=== PATIENT | female | born 1995 | race American Indian/Alaskan Native ===

== ENCOUNTER 2020-10-07 12:27 | Emergency (ER) | payer OTHER ==
[2020-10-07 12:41] VITALS: BP 177/88
[2020-10-07] MEDS ORDERED: ALBUTEROL 2.5 MG/3 ML NEBU IH ONE (13:24)
[2020-10-07] MEDS ORDERED: IPRATROPIUM 0.02% NEBU 2.5 ML IH ONE (13:25)
[2020-10-07 13:42] LABS: Basophils # (Auto) 0.1 K/mm3 (0.0-0.1); Basophils % (Auto) 0.5 % (0.0-1.8); Eosinophils # (Auto) 0.2 K/mm3 (0.0-0.4); Eosinophils % (Auto) 2.1 % (0.0-4.3); Hemoglobin 13.4 gm/dl (10.1-14.3); Lymphocytes # (Auto) 2.6 K/mm3 (1.2-5.4); Lymphocytes % (Auto) 24.2 % (13.4-35.0); Mean Corpuscular HGB Conc 33 % (30-34); Mean Corpuscular Volume 83 fl (79-97); Monocytes # (Auto) 0.7 K/mm3 (0.0-0.8); Monocytes % (Auto) 6.5 % (0.0-7.3); Platelet Count 239 K/mm3 (140-440); Red Blood Count 4.81 M/mm3 (3.65-5.03); Red Cell Distribution Width 14.2 % (13.2-15.2)
[2020-10-07 14:05] LABS: Alanine Aminotransferase 26 units/L (7-56); Albumin 3.8 g/dL (3.9-5); Blood Urea Nitrogen 9 mg/dL (7-17); Calcium 9.1 mg/dL (8.4-10.2); Hemolysis Index 0
[2020-10-07 14:07] LABS: BUN/Creatinine Ratio 13
[2020-10-07] MEDS ORDERED: methylPREDNISolone Sod Succinate 125 MG/2 ML INJ IV ONE (14:10)
--- NOTE | 2020-10-07 14:11 | Emergency Department Report ---
ED General Adult HPI - General Chief complaint: Chest Pain Stated complaint: CHEST PAIN/SOB Time Seen by Provider: 10/07/20 13:16 Source: patient Mode of arrival: Ambulatory Limitations: No Limitations - Related Data Allergies Allergy/AdvReac Type Severity Reaction Status Date / Time No Known Allergies Allergy Unverified 10/07/20 12:39 ED Review of Systems ROS: Stated complaint: CHEST PAIN/SOB Other details as noted in HPI ED Past Medical Hx - Past Medical History Previous Medical History?: Yes Hx Diabetes: Yes ED Physical Exam - General Limitations: No Limitations ED Course Vital Signs 10/07/20 12:41 Temperature 98.9 F Pulse Rate 113 H Respiratory 18 Rate Blood Pressure 177/88 [Right] O2 Sat by Pulse 95 Oximetry ED Medical Decision Making - Lab Data Result diagrams: 10/07/20 13:31 10/07/20 13:31 Critical care attestation.: If time is entered above; I have spent that time in minutes in the direct care of this critically ill patient, excluding procedure time. ED Disposition Condition: Stable
--- NOTE | 2020-10-07 14:30 | Emergency Department Report ---
<SHAWN SANZ - Last Filed: 10/07/20 17:27> ED General Adult HPI - General Chief complaint: Chest Pain Stated complaint: CHEST PAIN/SOB Time Seen by Provider: 10/07/20 13:16 Source: patient Mode of arrival: Ambulatory Limitations: No Limitations - History of Present Illness Initial comments: 25-year-old -[place] female patient presents with complaints of sudden onset of chest pain and shortness of breath this morning. She states this episode feels similar to an episode she had 2 years ago when she had to receive a breathing treatment after having a reaction to pollen. She denies any throat pain/dysphagia, cough/hemoptysis, fever/chills/sweats, recent known sick contacts, loss of taste or smell, abdominal pain, nausea/vomiting/diarrhea, or history of smoking. No history of DVT/PE, leg pain/swelling, recent long travel/surgeries, or history of cancer. She states she is currently on control. History of hypertension and diabetes per patient - Related Data Previous Rx's Medication Instructions Recorded Last Taken Type Albuterol Mdi (or & Nicu Only) 2 puff IH Q4H PRN #8.5 gram 10/07/20 Unknown Rx [ProAir HFA Inhaler] Doxycycline Hyclate 100 mg PO BID 10 Days #20 tablet. 10/07/20 Unknown Rx Loratadine [Claritin] 10 mg PO QDAY #10 tablet 10/07/20 Unknown Rx Prednisone [predniSONE 10 mg 10 mg PO .TAPER #1 tab.ds.pk 10/07/20 Unknown Rx (6-Day Pack, 21 Tabs)] Allergies Allergy/AdvReac Type Severity Reaction Status Date / Time No Known Allergies Allergy Unverified 10/07/20 12:39 ED Review of Systems Constitutional: denies: chills, diaphoresis, fever Respiratory: shortness of breath. denies: cough Cardiovascular: chest pain Gastrointestinal: denies: abdominal pain, nausea, vomiting Musculoskeletal: denies: back pain Skin: denies: lesions, change in color Neurological: denies: headache Hematological/Lymphatic: denies: swollen glands ED Past Medical Hx - Past Medical History Previous Medical History?: Yes Hx Diabetes: Yes - Medications Home Medications: Home Medications Medication Instructions Recorded Confirmed Last Taken Type Albuterol Mdi (or & Nicu Only) 2 puff IH Q4H PRN #8.5 gram 10/07/20 Unknown Rx [ProAir HFA Inhaler] Doxycycline Hyclate 100 mg PO BID 10 Days #20 tablet. 10/07/20 Unknown Rx Loratadine [Claritin] 10 mg PO QDAY #10 tablet 10/07/20 Unknown Rx Prednisone [predniSONE 10 mg 10 mg PO .TAPER #1 tab.ds.pk 10/07/20 Unknown Rx (6-Day Pack, 21 Tabs)] ED Physical Exam - General Limitations: No Limitations General appearance: alert, in no apparent distress, obese - Head Head exam: Present: atraumatic, normocephalic - Eye Eye exam: Present: normal appearance. Absent: scleral icterus - ENT ENT exam: Present: normal exam - Neck Neck exam: Present: normal inspection, full ROM. Absent: tenderness - Respiratory Respiratory exam: Present: decreased breath sounds (Diffuse). Absent: respir atory distress, rales, rhonchi, stridor - Cardiovascular Cardiovascular Exam: Present: normal rhythm, tachycardia - GI/Abdominal GI/Abdominal exam: Present: soft. Absent: distended, tenderness - Extremities Exam Extremities exam: Absent: calf tenderness (No swelling or tenderness noted to legs bilaterally) - Back Exam Back exam: Present: full ROM - Neurological Exam Neurological exam: Present: alert, oriented X3, normal gait - Psychiatric Psychiatric exam: Present: normal affect, normal mood - Skin Skin exam: Present: warm, dry, intact, normal color. Absent: rash, diaphoretic, ecchymosis ED Medical Decision Making - Lab Data Result diagrams: 10/07/20 13:31 10/07/20 13:31 - Radiology Data Radiology results: report reviewed CTA CHEST WITH CONTRAST INDICATION / CLINICAL INFORMATION: chest pain, shortness of breath. TECHNIQUE: Axial CT images were obtained through the chest after injection of IV contrast. 3 plane MIP and/or 3D reconstructions were produced. All CT scans at this location are performed using CT dose reduction for ALARA by means of automated exposure control. COMPARISON: None available. FINDINGS: PULMONARY ARTERIES: No large central pulmonary embolus. Distal pulmonary arterial branches are poorly evaluated secondary to timing of contrast bolus with mild turbulent filling artifact. THORACIC AORTA: No significant abnormality. HEART: No significant abnormality. CORONARY ARTERIES: No significant calcification. MEDIASTINUM / DENISE: No significant abnormality. PLEURA: No pleural effusion. No pneumothorax. LUNGS: Patchy groundglass opacities are noted in a Central peribronchial vascular distribution bilaterally. Small right-sided semisolid perifissural nodule measures 8 mm (series 2 image 44). ADDITIONAL FINDINGS: None. UPPER ABDOMEN: No acute findings. SKELETAL STRUCTURES: No significant osseous abnormality. No aggressive osseous lesion. IMPRESSION: 1. No large central pulmonary embolus on this limited study. Distal pulmonary arterial branches are poorly evaluated secondary to timing of contrast bolus and turbulent filling artifact. 2. Groundglass opacities bilaterally with central peribronchial vascular distribution may represent interstitial edema versus developing infectious process. Clinical correlation is needed. 3. Incidental right perifissural pulmonary nodule measures 8 mm. Follow-up recommendations as below. - Medical Decision Making 25-year-old -[place] female patient presents with complaints of sudden onset of chest pain and shortness of breath this morning. She states this episode feels similar to an episode she had 2 years ago when she had to receive a breathing treatment after having a reaction to pollen. She denies any throat pain/dysphagia, cough/hemoptysis, fever/chills/sweats, recent known sick contacts, loss of taste or smell, abdominal pain, nausea/vomiting/diarrhea, or history of smoking. No history of DVT/PE, leg pain/swelling, recent long travel/surgeries, or history of cancer. She states she is currently on control. History of hypertension and diabetes per patient PERC score = 2 given heart rate of 113 and use of control. Dimer elevated in the 500s. CBC and CMP are without acute abnormalities. CTA of chest is negative for any PE, however shows possible developing infectious process vs interstitial edema. Patient given continuous neb and [id number] states her shortness of breath has resolved. Improved aeration noted on reexamination of lungs. Will treat for bronchospasm and pneumonia with albuterol and prednisone. Discussed importance of monitoring glucose levels closely given history of diabetes and importance of low carb/sugar diet. Blood pressure rechecked at 115/69 she is well-appearing, her vitals are stable, she is stable for discharge home. Strict return precautions discussed in detail with patient who verbalized understanding. Patient to follow-up with primary care for recheck within first thing Saturday morning ED Disposition Clinical Impression: Bronchospasm, acute, Pulmonary nodule Disposition: TO HOME OR SELFCARE Is pt being admited?: No Condition: Stable Instructions: Asthma, Adult, Bronchospasm, Adult, Community-Acquired Pneumonia, Adult Prescriptions: Loratadine [Claritin] 10 mg PO QDAY #10 tablet Doxycycline Hyclate 100 mg PO BID 10 Days #20 tablet. Prednisone [predniSONE 10 mg (6-Day Pack, 21 Tabs)] 10 mg PO .TAPER #1 tab.ds.pk Albuterol Mdi (or & Nicu Only) [ProAir HFA Inhaler] 2 puff IH Q4H PRN #8.5 gram PRN Reason: Shortness Of Breath Referrals: PRIMARY CARE, [Primary Care Provider] - 3-[address] [facility] [Provider Group] - 3-5 Days Forms: Work/School Release Form(ED) <ANGELLA GAMBOA - Last Filed: 10/09/20 10:50> ED Review of Systems ROS: Stated complaint: CHEST PAIN/SOB Other details as noted in HPI ED Course Vital Signs 10/07/20 10/07/20 10/07/20 12:41 13:22 16:59 Temperature 98.9 F Pulse Rate 113 H 106 H 101 H Respiratory 18 Rate Blood Pressure 177/88 [Right] O2 Sat by Pulse 95 98 98 Oximetry 10/07/20 17:00 Temperature Pulse Rate 101 H Respiratory Rate Blood Pressure [Right] O2 Sat by Pulse 98 Oximetry ED Medical Decision Making - Lab Data Result diagrams: 10/07/20 13:31 10/07/20 13:31 Vital Signs 10/07/20 10/07/20 10/07/20 12:41 13:22 16:59 Temperature 98.9 F Pulse Rate 113 H 106 H 101 H Respiratory 18 Rate Blood Pressure 177/88 [Right] O2 Sat by Pulse 95 98 98 Oximetry 10/07/20 17:00 Temperature Pulse Rate 101 H Respiratory Rate Blood Pressure [Right] O2 Sat by Pulse 98 Oximetry Lab Results 10/07/20 10/07/20 10/07/20 Range/Units 13:31 13:31 13:31 WBC 10.9 (4.5-11.0) K/mm3 RBC 4.81 (3.65-5.03) M/mm3 Hgb 13.4 (10.1-14.3) gm/dl Hct 40.0 (30.3-42.9) % MCV 83 (79-97) fl MCH 28 (28-32) pg MCHC 33 (30-34) % RDW 14.2 (13.2-15.2) % Plt Count 239 (140-440) K/mm3 Lymph % (Auto) 24.2 (13.4-35.0) % [place] % (Auto) 6.5 (0.0-7.3) % Eos % (Auto) 2.1 (0.0-4.3) % Baso % (Auto) 0.5 (0.0-1.8) % Lymph # (Auto) 2.6 (1.2-5.4) K/mm3 [place] # (Auto) 0.7 (0.0-0.8) K/mm3 Eos # (Auto) 0.2 (0.0-0.4) K/mm3 Baso # (Auto) 0.1 (0.0-0.1) K/mm3 Seg Neutrophils % 66.7 (40.0-70.0) % Seg Neutrophils # 7.3 (1.8-7.7) K/mm3 D-Dimer (0-234) ng/mlDDU Sodium 139 (137-145) mmol/L Potassium 4.0 (3.6-5.0) mmol/L Chloride 105.1 (98-107) mmol/L Carbon Dioxide 24 (22-30) mmol/L Anion Gap 14 mmol/L BUN 9 (7-17) mg/dL Creatinine 0.7 (0.6-1.2) mg/dL Estimated GFR > 60 ml/min BUN/Creatinine Ratio 13 % Glucose 107 H (65-100) mg/dL Calcium 9.1 (8.4-10.2) mg/dL Total Bilirubin 0.20 (0.1-1.2) mg/dL AST 17 (5-40) units/L ALT 26 (7-56) units/L Alkaline Phosphatase 85 (35-129) units/L Troponin T < 0.010 (0.00-0.029) ng/mL Total Protein 7.4 (6.3-8.2) g/dL Albumin 3.8 L (3.9-5) g/dL Albumin/Globulin Ratio 1.1 % HCG, Qual Negative (Negative) 10/07/20 Range/Units 13:31 WBC (4.5-11.0) K/mm3 RBC (3.65-5.03) M/mm3 Hgb (10.1-14.3) gm/dl Hct (30.3-42.9) % MCV (79-97) fl MCH (28-32) pg MCHC (30-34) % RDW (13.2-15.2) % Plt Count (140-440) K/mm3 Lymph % (Auto) (13.4-35.0) % [place] % (Auto) (0.0-7.3) % Eos % (Auto) (0.0-4.3) % Baso % (Auto) (0.0-1.8) % Lymph # (Auto) (1.2-5.4) K/mm3 [place] # (Auto) (0.0-0.8) K/mm3 Eos # (Auto) (0.0-0.4) K/mm3 Baso # (Auto) (0.0-0.1) K/mm3 Seg Neutrophils % (40.0-70.0) % Seg Neutrophils # (1.8-7.7) K/mm3 D-Dimer 597.68 H (0-234) ng/mlDDU Sodium (137-145) mmol/L Potassium (3.6-5.0) mmol/L Chloride (98-107) mmol/L Carbon Dioxide (22-30) mmol/L Anion Gap mmol/L BUN (7-17) mg/dL Creatinine (0.6-1.2) mg/dL Estimated GFR ml/min BUN/Creatinine Ratio % Glucose (65-100) mg/dL Calcium (8.4-10.2) mg/dL Total Bilirubin (0.1-1.2) mg/dL AST (5-40) units/L ALT (7-56) units/L Alkaline Phosphatase (35-129) units/L Troponin T (0.00-0.029) ng/mL Total Protein (6.3-8.2) g/dL Albumin (3.9-5) g/dL Albumin/Globulin Ratio % HCG, Qual (Negative) - EKG Data -: EKG Interpreted by Mo EKG shows normal: sinus rhythm - EKG Data 10/09/20 10:49 EKG interpreted f 10: 49 AM Sinus rhythm, tachycardia, rate 107 bpm. Borderline leftward axis deviation, motion artifact, QTC 449 ms, this EKG is not a STEMI Critical care attestation.: If time is entered above; I have spent that time in minutes in the direct care of this critically ill patient, excluding procedure time.
--- NOTE | 2020-10-07 17:23 | Cat Scan Report ---
CTA CHEST WITH CONTRAST INDICATION / CLINICAL INFORMATION: chest pain, shortness of breath. TECHNIQUE: Axial CT images were obtained through the chest after injection of IV contrast. 3 plane MIP and/or 3D reconstructions were produced. All CT scans at this location are performed using CT dose reduction f or ALARA by means of automated exposure control. COMPARISON: None available. FINDINGS: PULMONARY ARTERIES: No large central pulmonary embolus. Distal pulmonary arterial branches are poorly evaluated secondary to timing of contrast bolus with mild turbulent filling artifact. THORACIC AORTA: No significant abnormality. HEART: No significant abnormality. CORONARY ARTERIES: No significant calcification. MEDIASTINUM / DENISE: No significant abnormality. PLEURA: No pleural effusion. No pneumothorax. LUNGS: Patchy groundglass opacities are noted in a Central peribronchial vascular distribution bilate rally. Small right-sided semisolid perifissural nodule measures 8 mm (series 2 image 44). ADDITIONAL FINDINGS: None. UPPER ABDOMEN: No acute findings. SKELETAL STRUCTURES: No significant osseous abnormality. No aggressive osseous lesion. IMPRESSION: 1. No large central pulmonary embolus on this limited study. Distal pulmonary arterial branches are p oorly evaluated secondary to timing of contrast bolus and turbulent filling artifact. 2. Groundglass opacities bilaterally with central peribronchial vascular distribution may represent i nterstitial edema versus developing infectious process. Clinical correlation is needed. 3. Incidental right perifissural pulmonary nodule measures 8 mm. Follow-up recommendations as below. INCIDENTAL PULMONARY NODULE RECOMMENDATION RECOMMENDATION: Solid Nodule size 6-8 mm -- Single - Low Risk Patient: CT at 6-12 months, then consider CT at 18-24 months - High Risk Patient: CT at 6-12 months, then CT at 18-24 months Note These recommendations do not apply to lung cancer screening, patients with immunosuppression, o r patients with known primary cancer. Note Newly detected indeterminate nodule in persons 35 years of age or older. Persons under the age of 35 should not receive follow-up unless there is a known primary cancer. Note Perifissural Nodule is a fissure-attached, homogeneous, solid nodule that has smooth margins an d an oval, lentiform, or triangular shape. They represent about 20% of nodules detected in lung cance r screening, are invariably benign, and do not require follow-up. Nodules 10 mm or larger (or those w ith suspicious features) will continue to be managed based on the size criteria. - Low Risk Patient = minimal or absent history of smoking and of other known risk factors. - High Risk Patient = history of smoking or of other known risk factors. Nodule dimensions are average of long and short axes, rounded to the nearest millimeter. Based on 2017 Fleischner Society Guidelines found in Radiology 2017 284:228-243. https://doi.org/10.1148/radiol.[email or web address] https://www.ncbi.nlm.nih.gov/pmc/articles/FLB6954771/ Signer Name: Chilo Pedraza MD Signed: 10/07/2020 5:19 PM Workstation Name: [id number]
--- NOTE | 2020-10-10 11:07 | Electrocardiograph Report ---
[facility] Test Date: 2020-10-07 Test Time: 13:26:49 Pat Name: FRANCIA MTZ Department: Room: Gender: F Pesticide Applicator: DANA : 1995 Requested By: SHAWN SANZ Order Number: [id number] Reading MD: Brandin Quiros Measurements Intervals [place] Rate: 107 P: 67 MN: 178 QRS: 17 QRSD: 86 T: 43 QT: 336 QTc: 449 Interpretive Statements Sinus tachycardia No previous ECG available for comparison Electronically Signed On 10-10-2020 8:07:16 PDT by Brandin Quiros
== END 2020-10-07 18:26 | disposition home or self-care (01) ==
LOC: ED 12:27
DX: J98.4 Other disorders of lung (principal); J98.01 Acute bronchospasm; E11.9 Type 2 diabetes mellitus without complications
CPT/HCPCS: 36415; 71275; 80053; 84484; 84703; 85025; 85379; 93005; 94644; 96374; 99284; J2930; Q9967